=== PATIENT | male | born 1975 | race Caucasian/White ===

== ENCOUNTER 2016-07-02 21:08 | Emergency (ER) | payer BC ==
[~2016-07-02] VITALS: Ht 177.8 cm; Wt 95.0 kg
[2016-07-02 21:13] VITALS: BP 115/588; PULSE 75
[2016-07-02] MEDS ORDERED: ZYRTEC 10MG10 MG PO (21:14)
[2016-07-02] MEDS ORDERED: ULTRAM 50MG TAB50 MG PO (21:41)
== END 2016-07-02 22:11 | disposition home or self-care (01) ==
LOC: COL.ER 21:08
DX: S86.112A Strain of other muscle(s) and tendon(s) of posterior muscle group at lower leg level, left leg, initial encounter (principal); X50.0XXA Overexertion from strenuous movement or load, initial encounter

== ENCOUNTER 2016-07-21 14:18 | Emergency (ER) | payer OTHER, BC ==
[~2016-07-21] VITALS: Ht 177.8 cm; Wt 93.2 kg
[~2016-07-21 14:18] MED LIST: ULTRAM 50MG TAB50 MG PO; ZYRTEC 10MG10 MG PO
[2016-07-21 14:19] VITALS: BP 119/66; TEMP 98
[2016-07-21] MEDS ORDERED: MOTRIN 800800 MG/TAB PO (16:56)
[2016-07-21] MEDS ORDERED: NORCO 325 MG-51 TAB PO (16:56)
[2016-07-21 17:12] VITALS: PULSE 80
== END 2016-07-21 17:15 | disposition home or self-care (01) ==
LOC: COL.ER 14:18
DX: S13.9XXA Sprain of joints and ligaments of unspecified parts of neck, initial encounter (principal); S23.3XXA Sprain of ligaments of thoracic spine, initial encounter; S16.1XXA Strain of muscle, fascia and tendon at neck level, initial encounter; S29.012A Strain of muscle and tendon of back wall of thorax, initial encounter; S20.222A Contusion of left back wall of thorax, initial encounter; S20.221A Contusion of right back wall of thorax, initial encounter; S80.02XA Contusion of left knee, initial encounter; M25.512 Pain in left shoulder; M25.511 Pain in right shoulder; V89.1XXA Person injured in unspecified nonmotor-vehicle accident, nontraffic, initial encounter; Y92.84 Military training ground as the place of occurrence of the external cause